=== PATIENT | male | born 1975 ===

== ENCOUNTER 2018-04-19 13:06 | Emergency (ER) | payer MEDICAID, OTHER ==
[2018-04-19 13:32] VITALS: O2SAT 95
--- NOTE | 2018-04-19 13:47 | ED PDOC ---
HPI: Influenza Time Seen by Provider: 04/19/18 13:33 Chief Complaint: Flu-like Symptoms Chief Complaint (Provider): Flu-like Symptoms History Per: Patient Exam Limitations: no limitations Onset/Duration Of Symptoms: Days (x2) Additional complaint(s):: 43 year old male presents to the ED for evaluation of body aches, fever, cough, and sore throat for the past two days. He reports taking two Motrin today around 0800. Otherwise denies vomiting and diarrhea. PMD: none provided Past Medical History Reviewed: Historical Data, Nursing Documentation, Vital Signs Vital Signs: Last Vital Signs Temp 102.9 F H 04/19/18 13:30 Pulse 109 H 04/19/18 13:30 Resp 20 04/19/18 13:30 BP 135/68 04/19/18 13:30 Pulse Ox 95 04/19/18 13:30 - Medical History PMH: Back Problems - Surgical History Surgical History: Back Surgery - Family History Family History: States: Unknown Family Hx - Social History Current smoker - smoking cessation education provided: No Alcohol: None Drugs: Denies - Home Medications Home Medications: Ambulatory Orders Medication Instructions Recorded Acetaminophen [Acetaminophen Extra 2 tab PO Q6 PRN #24 tablet 04/19/18 Strength] Ibuprofen [Motrin Tab] 800 mg PO Q8 PRN #21 tab 04/19/18 Oseltamivir Cap [Tamiflu] 75 mg PO BID #9 cap 04/19/18 Promethazine/Codeine 5 ml PO Q12 PRN #100 ml 04/19/18 [Codeine/Promethazine 10 MG/5 Ml-6.25 MG/5 Ml] - Allergies Allergies/Adverse Reactions: Allergies Allergy/AdvReac Type Severity Reaction Status Date / Time No Known Allergies Allergy Verified 04/19/18 13:30 Review of Systems ROS Statement: Except As Marked, All Systems Reviewed And Found Negative Constitutional: Positive for: Fever, Other (bodyaches) ENT: Positive for: Throat Pain Respiratory: Positive for: Cough Gastrointestinal: Negative for: Vomiting, Diarrhea Physical Exam - Reviewed Nursing Documentation Reviewed: Yes Vital Signs Reviewed: Yes - Physical Exam Appears: Positive for: No Acute Distress Head Exam: Positive for: ATRAUMATIC, NORMOCEPHALIC Skin: Positive for: Normal Color Eye Exam: Positive for: Normal appearance ENT: Positive for: Normal ENT Inspection. Negative for: Pharyngeal Erythema, Tonsillar Exudate Cardiovascular/Chest: Positive for: Regular Rate, Rhythm Respiratory: Positive for: Normal Breath Sounds. Negative for: Wheezing, Respiratory Distress Neurologic/Psych: Positive for: Alert, Oriented (x3) Medical Decision Making Medical Decision Making: Time: 1333 Initial Impression: flu-like symptoms Initial Plan: --Tamiflu cap 75mg PO --Tylenol 975mg PO --Influenza AB swab --Rapid strep swab Scribe Attestation: Documented by Talya Márquez, acting as a scribe for Lili Cm PA-C. Provider Scribe Attestation: All medical record entries made by the Scribe were at my direction and personally dictated by me. I have reviewed the chart and agree that the record accurately reflects my personal performance of the history, physical exam, medical decision making, and the department course for this patient. I have also personally directed, reviewed, and agree with the discharge instructions and disposition. - ECG O2 Sat by Pulse Oximetry: 95 (RA) Pulse Ox Interpretation: Normal - Progress ED Course And Treament: INFLUENZA A/B NEG RAPID STREP NEG Disposition - Clinical Impression Clinical Impression: Influenza-like symptoms - Patient ED Disposition Is Patient to be Admitted: No - Disposition Disposition: Routine/Home Disposition Time: 14:30 Condition: IMPROVED Prescriptions: Acetaminophen [Acetaminophen Extra Strength] 2 tab PO Q6 PRN #24 tablet PRN Reason: Fever >100.4 F Ibuprofen [Motrin Tab] 800 mg PO Q8 PRN #21 tab PRN Reason: Fever >100.4 F Oseltamivir Cap [Tamiflu] 75 mg PO BID #9 cap Promethazine/Codeine [Codeine/Promethazine 10 MG/5 Ml-6.25 MG/5 Ml] 5 ml PO Q12 PRN #100 ml PRN Reason: Cough Instructions: Flu, Adult (DC) Forms: [facility] ED School/Work Excuse Print Language: [place]
[2018-04-19 14:33] VITALS: BP 131/78; PULSE 92; RESP 16; TEMP 100.2
== END 2018-04-19 14:33 | disposition home or self-care (01) ==
LOC: H.ER 13:06
DX: J11.1 Influenza due to unidentified influenza virus with other respiratory manifestations (principal)